=== PATIENT | female | born 1995 | race Caucasian/White ===

== ENCOUNTER 2022-07-30 21:24 | Emergency (ER) | payer MEDICAID ==
[~2022-07-30] VITALS: Ht 152.4 cm; Wt 70.3 kg
--- NOTE | 2022-07-30 21:30 | NUR ---
Patient place on bed 12 with her family.
--- NOTE | 2022-07-30 21:32 | NUR ---
Patient BIB by BLS. C/O cough, congestion and fever x 1 week, Patient reported, cough, congestion , headache and fever for one week, 7 months, no vaginal bleeding, LMP unknown/can not recall. PMHx: DENIES
[2022-07-30 21:42] VITALS: BP 121/60
[2022-07-30] MEDS ORDERED: ACET-9882 PO (23:31)
[2022-07-30 23:35] VITALS: BP 121/60
--- NOTE | 2022-07-30 23:35 | NUR ---
Patient discharged with v/s stable. Written and verbal after care instructions given and explained by Dr. Cao with breakfast hostess. Patient alert, oriented and verbalized understanding of instructions. Ambulatory with steady gait. All questions addressed prior to discharge. ID band removed. Patient advised to follow up with PMD. Rx of Tylenol given. Patient educated on indication of medication including possible reaction and side effects. Opportunity to ask questions provided and answered.
== END 2022-07-30 23:35 | disposition home or self-care (01) ==
LOC: MED 21:24
DX: J06.9 Acute upper respiratory infection, unspecified (principal)
CPT/HCPCS: 99283